=== PATIENT | female | born 1945 | race African-American/Black ===

== ENCOUNTER 2017-02-07 03:24 | Inpatient (IN) | payer MEDICARE, MEDICAID ==
[~2017-02-07] VITALS: Ht 167.6 cm; Wt 64.4 kg
[~2017-02-07 03:24] MED LIST: GABA-529 PO; LEVO25TA7 PO; LOSA25TA12 PO
[2017-02-07] MEDS ORDERED: MORPHINE SULFATE 4 MG/ML CPJ (NOT FOR IM USE) IV STA (03:49)
[2017-02-07] MEDS ORDERED: ONDANSETRON HCL 4MG/2ML VIAL IV STA (03:49)
[2017-02-07] MEDS ORDERED: SODIUM CHLORIDE 0.9% 1,000 ML IV ONE (03:49)
[2017-02-07 04:19] LABS: BASOPHILS % 0.9 % (0.0-2.0); EOSINOPHILS % 1.4 % (0.0-5.0); HEMATOCRIT. 35.7 % (36.0-48.0); HEMOGLOBIN. 12.2 g/dL (12.0-16.0); LYMPHOCYTES % 27.4 % (20.0-50.0); MEAN CORPUSCULAR HEMOGLOBIN 30.9 pg (28.0-32.0); MEAN CORPUSCULAR VOLUME 90.7 fL (81.0-99.0); MEAN PLATELET VOLUME 8.8 fl (7.4-10.4); MONOCYTES % 7.2 % (2.0-8.0); NEUTROPHILS % 63.1 % (40.0-76.0); PLATELET 219 x1000/uL (130-400); RED BLOOD CELL COUNT 3.93 mill/uL (4.2-5.4); RED CELL DISTRIBUTION WIDTH 14.6 % (11.6-14.6)
[2017-02-07 04:33] LABS: CARBON DIOXIDE 29 mEq/L (21-32); CHLORIDE 107 mEq/L (98-107); TROPONIN I < 0.02 ng/mL (0.00-0.04)
[2017-02-07 04:57] LABS: CLARITY URINE CLEAR (CLEAR); COLOR URINE YELLOW (YELLOW); GLUCOSE URINE NEGATIVE (NEGATIVE); KETONES URINE NEGATIVE (NEGATIVE); LEUKOCYTE ESTERASE URINE TRACE (NEGATIVE); NITRITE URINE NEGATIVE (NEGATIVE); OCCULT BLOOD URINE NEGATIVE (NEGATIVE); PH URINE 8.5 (4.5-8.0); PROTEIN URINE TRACE (NEGATIVE); SPECIFIC GRAVITY URINE 1.015 (1.005-1.030); UROBILINOGEN URINE 0.2 E.U./dL (0.2-1.0)
[2017-02-07 08:00] VITALS: BP 168/100
[2017-02-07 09:30] VITALS: BP 160/85
[2017-02-07] MEDS ORDERED: LEVO50TA8 PO (09:32)
[2017-02-07] MEDS ORDERED: HYDR12.529 PO (09:32)
[2017-02-07] MEDS ORDERED: CLOP75TA33 PO (09:32)
[2017-02-07] MEDS ORDERED: ASPI-1159 PO (09:32)
[2017-02-07] MEDS ORDERED: LOSA50TA20 PO (09:33)
[2017-02-07] MEDS ORDERED: HYDROMORPHONE HCL/PF 2MG/ML CPJ IV PRN (10:15)
[2017-02-07] MEDS: HYDROCHLOROTHIAZIDE 25MG TABLET PO SCH (10:58)
[2017-02-07] MEDS: ASPIRIN 81MG EC TABLET PO SCH (10:58)
[2017-02-07] MEDS: LOSARTAN POTASSIUM 50 MG TABLET PO SCH (10:58)
[2017-02-07] MEDS: CLOPIDOGREL 75MG TABLET PO SCH (10:58)
[2017-02-07] MEDS: PANTOPRAZOLE SODIUM 40 MG/VIAL IV SCH (10:58)
[2017-02-07] MEDS: DEXT 5%/0.45% NACL 1000ML 1,000 ML IV SCH (10:59)
[2017-02-07 12:00] VITALS: BP 131/70
[2017-02-07] MEDS ORDERED: SORBITOL 70% SOLN 30ML PO NR ×2 (12:45→14:45)
[2017-02-07] MEDS: SENNOSIDES/DOCUSATE SOD 8.6/50MG TABLET PO SCH ×2 (13:16→18:15)
[2017-02-07] MEDS ORDERED: DIATR MEGLU/DIATRIZOATE SOLN 120ML ONE (13:35)
[2017-02-07] MEDS ORDERED: LORAZEPAM 1MG TABLET PO PRN (14:45)
[2017-02-07] MEDS ORDERED: TEMAZEPAM 15MG CAPSULE PO PRN (14:45)
[2017-02-07 16:00] VITALS: BP 174/78
[2017-02-07 16:55] VITALS: BP 145/85
[2017-02-07 20:00] VITALS: BP_SYST 154; BP_SYST 156; BP_DIAS 83; BP_DIAS 84
[2017-02-07] MEDS ORDERED: SORBITOL 70% SOLN 30ML PO PRN (20:00)
[2017-02-08] VITALS: BP 191/95
[2017-02-08] MEDS: CLONIDINE 0.1MG TABLET PO PRN (00:24)
[2017-02-08 04:00] VITALS: BP 125/75
[2017-02-08] MEDS: LEVOTHYROXINE SODIUM 50MCG TABLET PO SCH (06:30)
[2017-02-08 06:44] LABS: BASOPHILS % 0.7 % (0.0-2.0); EOSINOPHILS % 0.8 % (0.0-5.0); HEMATOCRIT. 34.2 % (36.0-48.0); HEMOGLOBIN. 11.8 g/dL (12.0-16.0); LYMPHOCYTES % 32.9 % (20.0-50.0); MEAN CORPUSCULAR HEMOGLOBIN 31.6 pg (28.0-32.0); MEAN CORPUSCULAR VOLUME 91.9 fL (81.0-99.0); MEAN PLATELET VOLUME 9.1 fl (7.4-10.4); MONOCYTES % 7.6 % (2.0-8.0); PLATELET 191 x1000/uL (130-400); RED BLOOD CELL COUNT 3.72 mill/uL (4.2-5.4); RED CELL DISTRIBUTION WIDTH 14.2 % (11.6-14.6)
[2017-02-08 07:48] LABS: PHOSPHORUS 2.8 mg/dL (2.5-4.9)
[2017-02-08 08:00] VITALS: BP 121/65
[2017-02-08] MEDS ORDERED: ENOXAPARIN 30MG/0.3ML SYR SUBCUT SCH (09:00)
[2017-02-08] MEDS: CLOPIDOGREL 75MG TABLET PO SCH (09:13)
[2017-02-08] MEDS: PANTOPRAZOLE SODIUM 40 MG/VIAL IV SCH (09:13)
[2017-02-08] MEDS: ASPIRIN 81MG EC TABLET PO SCH (09:13)
[2017-02-08] MEDS: SENNOSIDES/DOCUSATE SOD 8.6/50MG TABLET PO SCH ×2 (09:13→17:24)
[2017-02-08] MEDS: HYDROCHLOROTHIAZIDE 25MG TABLET PO SCH (09:13)
[2017-02-08] MEDS: LOSARTAN POTASSIUM 50 MG TABLET PO SCH (09:14)
[2017-02-08] MEDS: DEXT 5%/0.45% NACL 1000ML 1,000 ML IV SCH (09:15)
[2017-02-08 12:00] VITALS: BP 125/80
[2017-02-08 16:00] VITALS: BP 151/79
[2017-02-08 20:00] VITALS: BP 146/78
[2017-02-09] VITALS: BP 164/94
[2017-02-09] MEDS: CLONIDINE 0.1MG TABLET PO PRN (01:04)
[2017-02-09 04:00] VITALS: BP 148/90
[2017-02-09] MEDS: LEVOTHYROXINE SODIUM 50MCG TABLET PO SCH (06:25)
[2017-02-09 08:01] VITALS: BP 136/83
[2017-02-09] MEDS: SENNOSIDES/DOCUSATE SOD 8.6/50MG TABLET PO SCH (08:49)
[2017-02-09] MEDS: HYDROCHLOROTHIAZIDE 25MG TABLET PO SCH (08:49)
[2017-02-09] MEDS: CLOPIDOGREL 75MG TABLET PO SCH (08:49)
[2017-02-09] MEDS: ASPIRIN 81MG EC TABLET PO SCH (08:49)
[2017-02-09] MEDS: LOSARTAN POTASSIUM 50 MG TABLET PO SCH (08:56)
[2017-02-09] MEDS ORDERED: ENOXAPARIN 40MG/0.4ML SYR SUBCUT SCH (09:00)
[2017-02-09] MEDS ORDERED: FAMOTIDINE 20MG/2ML VIAL IV SCH (09:00)
[2017-02-09 11:04] VITALS: BP 136/83
== END 2017-02-09 12:25 | disposition home or self-care (01) | DRG 389 ==
LOC: ER 03:24 → EDBEDREQ 04:08 → 6WST 06:00 → EDBEDREQ 06:06 → ENRESERV 07:05
PROVIDERS: ADMIT Internal Medicine Nephrology; ATTEND Internal Medicine Nephrology
DX: K56.69 Other intestinal obstruction (principal); N17.9 Acute kidney failure, unspecified; N18.3 Chronic kidney disease, stage 3 (moderate); I12.9 Hypertensive chronic kidney disease with stage 1 through stage 4 chronic kidney disease, or unspecified chronic kidney disease; E04.2 Nontoxic multinodular goiter; E03.9 Hypothyroidism, unspecified; E78.5 Hyperlipidemia, unspecified; K59.00 Constipation, unspecified; F41.1 Generalized anxiety disorder; I73.9 Peripheral vascular disease, unspecified; M19.90 Unspecified osteoarthritis, unspecified site; Z87.11 Personal history of peptic ulcer disease; Z87.891 Personal history of nicotine dependence; Z90.710 Acquired absence of both cervix and uterus; Z88.0 Allergy status to penicillin; Z79.899 Other long term (current) drug therapy
CPT/HCPCS: 36415; 71010; 74176; 80048; 80053; 81001; 83605; 83690; 83735; 84100; 84484; 85025; 87086; 93005; 96361; 96374; 96375; 99285; C9113; J1170; J1650; J2270; J2405; J3490; J7030; Q9963

== ENCOUNTER → 2018-08-14 | Outpatient (CLI) | payer MEDICARE, MEDICAID ==
[~2018-08-14] MED LIST changes: +ASPI-1159 PO; +CLOP75TA33 PO; -GABA-529 PO; +HYDR12.529 PO; -LEVO25TA7 PO; +LEVO50TA8 PO; -LOSA25TA12 PO; +LOSA50TA20 PO
== END | disposition home or self-care (01) ==
LOC: PVL 13:08
PROVIDERS: ATTEND Internal Medicine Nephrology
DX: I73.9 Peripheral vascular disease, unspecified (principal); R20.0 Anesthesia of skin
CPT/HCPCS: 93923

== ENCOUNTER 2018-12-07 20:53 | Inpatient (IN) | payer MEDICARE, MEDICAID ==
[~2018-12-07] VITALS: Ht 167.6 cm; Wt 68.1 kg
[~2018-12-07 20:53] MED LIST changes: -ASPI-1159 PO; +ASPI-1393 PO; -LOSA50TA20 PO; +LOSA50TA41 PO
[2018-12-07 23:47] LABS: EOSINOPHILS % 1.1 % (0.0-5.0); HEMATOCRIT. 35.9 % (36.0-48.0); HEMOGLOBIN. 12.2 g/dL (12.0-16.0); LYMPHOCYTES % 23.3 % (20.0-50.0); MEAN CORPUSCULAR VOLUME 93.8 fL (81.0-99.0); MEAN PLATELET VOLUME 8.3 fl (7.4-10.4); MONOCYTES % 8.1 % (2.0-8.0); NEUTROPHILS % 66.5 % (40.0-76.0); PLATELET 186 x1000/uL (130-400); RED BLOOD CELL COUNT 3.83 mill/uL (4.2-5.4); RED CELL DISTRIBUTION WIDTH 14.3 % (11.6-14.6)
[2018-12-07 23:52] LABS: CHLORIDE 106 mEq/L (98-107)
[2018-12-08] VITALS (9 sets, daily range): BP systolic 110–167; BP diastolic 29–91
[2018-12-08] MEDS ORDERED: ASPIRIN 325MG TABLET PO ONE (01:00)
[2018-12-08] MEDS ORDERED: ENOXAPARIN 60MG/0.6ML SYR SUBCUT ONE (01:00)
[2018-12-08 01:45] LABS: PARTIAL THROMBOPLASTIN TIME 26.7 sec (23.4-31.0)
[2018-12-08] MEDS ORDERED: CLONIDINE 0.1MG TABLET PO PRN (02:30)
[2018-12-08] MEDS ORDERED: GUAIFENESIN 200MG/10ML SUGAR FREE UDC PO PRN (02:30)
[2018-12-08] MEDS ORDERED: MAGNESIUM/ALUMINUM HYDROXIDE/SIMETHICONE 30ML UDC PO PRN (02:30)
[2018-12-08] MEDS ORDERED: MORPHINE SULFATE 2 MG/ML CPJ (NOT FOR IM USE) IV PRN (02:30)
[2018-12-08] MEDS ORDERED: HYDROCODONE/ACETAMINOPHEN 5/325MG TABLET PO PRN (02:30)
[2018-12-08] MEDS ORDERED: ACETAMINOPHEN 325MG TABLET PO PRN ×2 (02:30→12:15)
[2018-12-08] MEDS ORDERED: ONDANSETRON HCL 4MG/2ML INJ IV PRN (02:30)
[2018-12-08] MEDS ORDERED: ENOXAPARIN 40MG/0.4ML SYR SUBCUT SCH (08:00)
[2018-12-08] MEDS ORDERED: DOCUSATE SODIUM 100MG CAPSULE PO PRN (09:00)
[2018-12-08] MEDS ORDERED: AMLODIPINE 10MG TABLET PO SCH (09:00)
[2018-12-08] MEDS: ASPIRIN 81MG EC TABLET PO SCH (09:10)
[2018-12-08] MEDS ORDERED: NITROGLYCERIN 50MCG/ML 10ML VIAL (CATH LAB) IV ONE (10:00)
[2018-12-08] MEDS ORDERED: NICARDIPINE 100MCG/ML 10ML VIAL (CATH LAB) IV ONE (10:00)
[2018-12-08] MEDS ORDERED: HEPARIN SODIUM 1,000 UNIT/1ML VIAL IV ONE ×2 (10:00→10:35)
[2018-12-08 10:05] LABS: CREATINE KINASE MB FRACTION 1.9 ng/mL (0.5-3.6)
[2018-12-08] MEDS ORDERED: LOSARTAN POTASSIUM 25 MG TABLET PO SCH (10:15)
[2018-12-08] MEDS ORDERED: CLOPIDOGREL 75MG TABLET PO SCH ×2 (10:15→12:15)
[2018-12-08] MEDS ORDERED: IODIXANOL 320MG/ML 100 ML BOTTLE IV ONE (10:32)
[2018-12-08] MEDS ORDERED: LIDOCAINE HCL 1% 20ML VIAL (Pyxis) INJ ONE (10:32)
[2018-12-08] MEDS ORDERED: MIDAZOLAM HCL 2 MG/2 ML VIAL ONE (11:03)
[2018-12-08] MEDS ORDERED: FENTANYL CITRATE/PF 50MCG/ML 2ML VIAL ONE (11:04)
[2018-12-08] MEDS ORDERED: DIPHENHYDRAMINE 50MG/ML VIAL ONE (11:14)
[2018-12-08] MEDS ORDERED: IOHEXOL-300 100 ML BOTTLE ONE (11:42)
[2018-12-08] MEDS ORDERED: NITROGLYCERIN 0.4MG TABLET SL SL ONE (12:05)
[2018-12-08] MEDS ORDERED: CLOPIDOGREL 75MG TABLET ONE (12:06)
[2018-12-08] MEDS ORDERED: CLOPIDOGREL 75MG TABLET PO ONE (12:15)
[2018-12-08] MEDS ORDERED: ATROPINE SULFATE 1MG/10ML SYR IV PRN (12:15)
[2018-12-08] MEDS: LEVOTHYROXINE SODIUM 25MCG TABLET PO SCH (13:25)
[2018-12-08] MEDS: DEXT 5%/0.9% NACL 1,000 ML IV SCH ×2 (14:00→23:05)
[2018-12-08] MEDS: HYDROCHLOROTHIAZIDE 12.5MG CAPSULE PO SCH (14:00)
[2018-12-08 21:46] LABS: CREATINE KINASE MB FRACTION 2.2 ng/mL (0.5-3.6)
[2018-12-09] VITALS (7 sets, daily range): BP systolic 130–168; BP diastolic 73–93
[2018-12-09] MEDS: LEVOTHYROXINE SODIUM 25MCG TABLET PO SCH (06:32)
[2018-12-09] MEDS: HYDROCHLOROTHIAZIDE 12.5MG CAPSULE PO SCH (06:32)
[2018-12-09 06:36] LABS: BASOPHILS % 0.8 % (0.0-2.0); EOSINOPHILS % 2.7 % (0.0-5.0); HEMATOCRIT. 36.8 % (36.0-48.0); HEMOGLOBIN. 12.6 g/dL (12.0-16.0); LYMPHOCYTES % 35.7 % (20.0-50.0); MEAN CORPUSCULAR VOLUME 93.2 fL (81.0-99.0); MONOCYTES % 12.5 % (2.0-8.0); NEUTROPHILS % 48.3 % (40.0-76.0); PLATELET 195 x1000/uL (130-400); RED BLOOD CELL COUNT 3.95 mill/uL (4.2-5.4); RED CELL DISTRIBUTION WIDTH 14.3 % (11.6-14.6)
[2018-12-09 07:51] LABS: CHLORIDE 110 mEq/L (98-107)
[2018-12-09 08:01] LABS: LDL CHOLESTEROL 117 mg/dL (5-100)
[2018-12-09 08:03] LABS: HDL CHOLESTEROL 51 mg/dL (40-59); T4 FREE 1.29 ng/dL (0.76-1.46)
[2018-12-09] MEDS: ASPIRIN 81MG EC TABLET PO SCH (08:36)
[2018-12-09] MEDS ORDERED: LOSARTAN POTASSIUM 50 MG TABLET PO SCH (09:00)
[2018-12-09] MEDS ORDERED: CLOPIDOGREL 75MG TABLET PO SCH (09:00)
[2018-12-09] MEDS ORDERED: ASPIRIN 81MG TABLET PO SCH (09:00)
[2018-12-09] MEDS ORDERED: ATORVASTATIN CALCIUM 40MG TABLET PO SCH (21:00)
== END 2018-12-09 11:50 | disposition home or self-care (01) | DRG 247 ==
LOC: ER 20:53 → 5WST 12-08 01:43 → SUPCPDRO 12-08 02:23 → ENRESERV 12-08 03:06 → 3WST 12-08 12:37
PROVIDERS: ADMIT Hospitalist; ATTEND Hospitalist
PROC: 4A023N7 Measurement of Cardiac Sampling and Pressure, Left Heart, Percutaneous Approach (ICD-10-PCS; principal; 2018-12-08)
PROC: 027035Z Dilation of Coronary Artery, One Artery with Two Drug-eluting Intraluminal Devices, Percutaneous Approach (ICD-10-PCS; 2018-12-08)
PROC: B2111ZZ Fluoroscopy of Multiple Coronary Arteries using Low Osmolar Contrast (ICD-10-PCS; 2018-12-08)
PROC: B2151ZZ Fluoroscopy of Left Heart using Low Osmolar Contrast (ICD-10-PCS; 2018-12-08)
DX: I21.4 Non-ST elevation (NSTEMI) myocardial infarction (principal); I25.10 Atherosclerotic heart disease of native coronary artery without angina pectoris; I12.9 Hypertensive chronic kidney disease with stage 1 through stage 4 chronic kidney disease, or unspecified chronic kidney disease; E78.5 Hyperlipidemia, unspecified; I73.9 Peripheral vascular disease, unspecified; E03.9 Hypothyroidism, unspecified; M19.90 Unspecified osteoarthritis, unspecified site; N18.3 Chronic kidney disease, stage 3 (moderate); F41.9 Anxiety disorder, unspecified; M47.817 Spondylosis without myelopathy or radiculopathy, lumbosacral region; E04.2 Nontoxic multinodular goiter; R00.1 Bradycardia, unspecified; T50.905A Adverse effect of unspecified drugs, medicaments and biological substances, initial encounter; Y92.89 Other specified places as the place of occurrence of the external cause; Z88.0 Allergy status to penicillin; Z88.1 Allergy status to other antibiotic agents; Z79.82 Long term (current) use of aspirin; Z79.02 Long term (current) use of antithrombotics/antiplatelets; Z79.899 Other long term (current) drug therapy; Z87.891 Personal history of nicotine dependence; Z90.5 Acquired absence of kidney; Z90.710 Acquired absence of both cervix and uterus; Z88.8 Allergy status to other drugs, medicaments and biological substances
CPT/HCPCS: 36415; 71045; 80048; 80061; 82550; 82553; 83036; 83880; 84439; 84443; 84484; 85347; 85379; 92928; 93005; 93306; 93458; 93970; 96372; 99285; C1725; C1769; C1874 ×2; C1887; C1893; J1200; J1644; J1650; J2250; J3010; J3490; J7042; Q9967

== ENCOUNTER 2019-02-13 09:58 | Inpatient (IN) | payer MEDICARE, MEDICAID ==
[~2019-02-13] VITALS: Ht 167.6 cm; Wt 65.8 kg
[2019-02-13 11:23] LABS: BASOPHILS % 0.9 % (0.0-2.0); EOSINOPHILS % 3.5 % (0.0-5.0); HEMATOCRIT. 36.9 % (36.0-48.0); HEMOGLOBIN. 12.6 g/dL (12.0-16.0); MEAN CORPUSCULAR HEMOGLOBIN 32.3 pg (28.0-32.0); MONOCYTES % 9.4 % (2.0-8.0); NEUTROPHILS % 58.2 % (40.0-76.0); PLATELET 184 x1000/uL (130-400); RED BLOOD CELL COUNT 3.89 mill/uL (4.2-5.4); RED CELL DISTRIBUTION WIDTH 14.5 % (11.6-14.6)
[2019-02-13 11:28] LABS: CHLORIDE 109 mEq/L (98-107)
[2019-02-13] MEDS ORDERED: NITROGLYCERIN 0.4MG TABLET SL SL ONE (11:30)
[2019-02-13] MEDS ORDERED: ASPIRIN 81MG TABLET PO ONE (11:30)
[2019-02-13 15:05] VITALS: BP 140/88
[2019-02-13] MEDS ORDERED: CARV3.1242 PO (16:07)
[2019-02-13] MEDS ORDERED: ATOR10TA69 MT (16:07)
[2019-02-13] MEDS ORDERED: DOCU-150 MT (16:07)
[2019-02-13] MEDS ORDERED: ONDANSETRON HCL 4MG/2ML INJ IV PRN (16:15)
[2019-02-13] MEDS ORDERED: CARVEDILOL 3.125 MG TABLET PO NR (16:15)
[2019-02-13] MEDS ORDERED: ACETAMINOPHEN 325MG TABLET PO PRN (16:15)
[2019-02-13] MEDS ORDERED: CLONIDINE 0.1MG TABLET PO PRN (16:15)
[2019-02-13] MEDS ORDERED: HYDROCODONE/ACETAMINOPHEN 5/325MG TABLET PO PRN (16:15)
[2019-02-13] MEDS: LEVOTHYROXINE SODIUM 50MCG TABLET PO SCH (16:30)
[2019-02-13] MEDS: LOSARTAN POTASSIUM 50 MG TABLET PO SCH (16:30)
[2019-02-13] MEDS ORDERED: MORPHINE SULFATE 2 MG/ML CPJ (NOT FOR IM USE) IV PRN (16:30)
[2019-02-13] MEDS: CARVEDILOL 3.125 MG TABLET PO SCH (18:35)
[2019-02-13] MEDS: ENOXAPARIN 40MG/0.4ML SYR SUBCUT SCH (18:35)
[2019-02-13] MEDS: DOCUSATE SODIUM 100MG CAPSULE PO SCH (18:36)
[2019-02-13 20:00] VITALS: BP 107/59
[2019-02-13] MEDS: ATORVASTATIN CALCIUM 10MG TABLET PO SCH (20:14)
[2019-02-13] MEDS: LORAZEPAM 1MG TABLET PO SCH (20:21)
[2019-02-14] VITALS: BP 108/63
[2019-02-14 02:39] LABS: CREATINE KINASE 40 IU/L (26-192)
[2019-02-14 02:40] LABS: CREATINE KINASE MB FRACTION < 1.0 ng/mL (0.5-3.6)
[2019-02-14 04:00] VITALS: BP 137/59
[2019-02-14] MEDS: LEVOTHYROXINE SODIUM 50MCG TABLET PO SCH (06:27)
[2019-02-14 06:55] LABS: CHLORIDE 109 mEq/L (98-107)
[2019-02-14 06:56] LABS: BASOPHILS % 0.4 % (0.0-2.0); EOSINOPHILS % 4.7 % (0.0-5.0); HEMATOCRIT. 34.6 % (36.0-48.0); HEMOGLOBIN. 11.7 g/dL (12.0-16.0); LYMPHOCYTES % 47.9 % (20.0-50.0); MEAN CORPUSCULAR VOLUME 94.8 fL (81.0-99.0); MEAN PLATELET VOLUME 8.9 fl (7.4-10.4); MONOCYTES % 8.7 % (2.0-8.0); NEUTROPHILS % 38.3 % (40.0-76.0); PLATELET 185 x1000/uL (130-400); RED BLOOD CELL COUNT 3.65 mill/uL (4.2-5.4); RED CELL DISTRIBUTION WIDTH 14.3 % (11.6-14.6)
[2019-02-14 07:07] LABS: LDL CHOLESTEROL 71 mg/dL (5-100)
[2019-02-14 07:08] LABS: CREATINE KINASE 36 IU/L (26-192)
[2019-02-14 07:10] LABS: CREATINE KINASE MB FRACTION < 1.0 ng/mL (0.5-3.6); HDL CHOLESTEROL 53 mg/dL (40-59)
[2019-02-14 08:00] VITALS: BP 126/68
[2019-02-14] MEDS: HYDROCHLOROTHIAZIDE 12.5MG CAPSULE PO SCH (08:53)
[2019-02-14] MEDS: ASPIRIN 81MG EC TABLET PO SCH ×2 (08:53→08:54)
[2019-02-14] MEDS: DOCUSATE SODIUM 100MG CAPSULE PO SCH ×2 (08:54→17:51)
[2019-02-14] MEDS: LOSARTAN POTASSIUM 50 MG TABLET PO SCH (08:54)
[2019-02-14] MEDS: CARVEDILOL 3.125 MG TABLET PO SCH (08:54)
[2019-02-14] MEDS: AMLODIPINE 10MG TABLET PO SCH (08:54)
[2019-02-14] MEDS: CLOPIDOGREL 75MG TABLET PO SCH (08:54)
[2019-02-14 12:00] VITALS: BP 119/75
[2019-02-14 16:00] VITALS: BP 110/62
[2019-02-14] MEDS: ENOXAPARIN 40MG/0.4ML SYR SUBCUT SCH (17:00)
[2019-02-14 20:00] VITALS: BP 112/56
[2019-02-14] MEDS: ATORVASTATIN CALCIUM 10MG TABLET PO SCH (21:12)
[2019-02-14] MEDS: LORAZEPAM 1MG TABLET PO SCH (23:48)
[2019-02-15] VITALS: BP 135/72
[2019-02-15 04:00] VITALS: BP 107/62
[2019-02-15] MEDS: LEVOTHYROXINE SODIUM 50MCG TABLET PO SCH (06:49)
[2019-02-15 08:00] VITALS: BP 109/66
[2019-02-15] MEDS: ASPIRIN 81MG EC TABLET PO SCH ×2 (09:00→09:20)
[2019-02-15] MEDS: AMLODIPINE 10MG TABLET PO SCH (09:00)
[2019-02-15] MEDS: CARVEDILOL 3.125 MG TABLET PO SCH (09:00)
[2019-02-15] MEDS: LOSARTAN POTASSIUM 50 MG TABLET PO SCH (09:00)
[2019-02-15] MEDS: CLOPIDOGREL 75MG TABLET PO SCH (09:21)
[2019-02-15] MEDS: DOCUSATE SODIUM 100MG CAPSULE PO SCH ×2 (09:21→17:15)
[2019-02-15] MEDS: HYDROCHLOROTHIAZIDE 12.5MG CAPSULE PO SCH (09:28)
[2019-02-15] MEDS ORDERED: REGADENOSON 0.4 MG/5 ML IV ONE ×2 (09:30→12:03)
[2019-02-15 13:05] VITALS: BP 136/70
[2019-02-15 16:00] VITALS: BP 128/60
[2019-02-15] MEDS: ENOXAPARIN 40MG/0.4ML SYR SUBCUT SCH (17:15)
[2019-02-15 20:00] VITALS: BP 109/61
[2019-02-15] MEDS: ATORVASTATIN CALCIUM 10MG TABLET PO SCH (21:32)
[2019-02-15] MEDS: LORAZEPAM 1MG TABLET PO SCH (21:32)
[2019-02-16] VITALS: BP 108/57
[2019-02-16 04:00] VITALS: BP 111/64
[2019-02-16] MEDS: LEVOTHYROXINE SODIUM 50MCG TABLET PO SCH (06:51)
[2019-02-16 08:00] VITALS: BP 134/91
[2019-02-16 09:19] VITALS: BP 134/91
== END 2019-02-16 09:45 | disposition home or self-care (01) | DRG 303 ==
LOC: ER 10:07 → 8WST 13:32 → EDBEDREQTM 13:42 → ENRESERV 13:46
PROVIDERS: ADMIT Hospitalist; ATTEND Hospitalist
DX: I25.118 Atherosclerotic heart disease of native coronary artery with other forms of angina pectoris (principal); N17.9 Acute kidney failure, unspecified; E03.9 Hypothyroidism, unspecified; E78.00 Pure hypercholesterolemia, unspecified; E78.5 Hyperlipidemia, unspecified; I12.9 Hypertensive chronic kidney disease with stage 1 through stage 4 chronic kidney disease, or unspecified chronic kidney disease; N18.3 Chronic kidney disease, stage 3 (moderate); E04.2 Nontoxic multinodular goiter; M19.90 Unspecified osteoarthritis, unspecified site; K21.9 Gastro-esophageal reflux disease without esophagitis; F41.9 Anxiety disorder, unspecified; I10 Essential (primary) hypertension; I25.2 Old myocardial infarction; Z95.5 Presence of coronary angioplasty implant and graft; Z87.891 Personal history of nicotine dependence; Z90.710 Acquired absence of both cervix and uterus; Z90.5 Acquired absence of kidney; Z79.02 Long term (current) use of antithrombotics/antiplatelets; Z79.82 Long term (current) use of aspirin; Z79.899 Other long term (current) drug therapy; Z88.0 Allergy status to penicillin; Z82.3 Family history of stroke
CPT/HCPCS: 36415; 71045; 78452; 80048; 80061; 82550; 82553; 83880; 84484; 93005; 93017; 93306; 93970; 96372; 99285; A9500; J1650; J2785

== ENCOUNTER 2019-10-06 11:14 | Inpatient (IN) | payer MEDICARE, MEDICAID ==
[~2019-10-06] VITALS: Ht 167.6 cm; Wt 81.7 kg
[~2019-10-06 11:14] MED LIST changes: -ASPI-1393 PO; +ASPI-1497 PO; +ATOR10TA69 MT; +CARV3.1242 PO; +DOCU-150 MT
[2019-10-06 11:55] LABS: BASOPHILS % 0.9 % (0.0-2.0); EOSINOPHILS % 2.7 % (0.0-5.0); HEMATOCRIT. 36.5 % (36.0-48.0); HEMOGLOBIN. 12.5 g/dL (12.0-16.0); LYMPHOCYTES % 22.2 % (20.0-50.0); MEAN CORPUSCULAR HEMOGLOBIN 32.2 pg (28.0-32.0); MEAN CORPUSCULAR VOLUME 94.3 fL (81.0-99.0); MEAN PLATELET VOLUME 8.7 fl (7.4-10.4); MONOCYTES % 9.9 % (2.0-8.0); NEUTROPHILS % 64.3 % (40.0-76.0); PLATELET 205 x1000/uL (130-400); RED BLOOD CELL COUNT 3.87 mill/uL (4.2-5.4)
[2019-10-06 12:03] LABS: INR 0.9; PROTHROMBIN TIME 9.9 sec (9.6-11.0)
[2019-10-06 12:05] LABS: CHLORIDE 108 mEq/L (98-107)
[2019-10-06] MEDS ORDERED: ASPIRIN 325MG TABLET PO ONE (13:00)
[2019-10-06] MEDS ORDERED: SODIUM CHLORIDE 0.9% 1,000 ML IV ONE (13:00)
[2019-10-06] MEDS: SODIUM CHLORIDE 0.9% 1,000 ML IV SCH (16:42)
[2019-10-06] MEDS ORDERED: ONDANSETRON HCL 4MG/2ML INJ IV PRN (16:45)
[2019-10-06] MEDS ORDERED: NA PHOS,M-B/NA PHOS,DI-BA ENEMA 118ML PR PRN (16:45)
[2019-10-06] MEDS: MULTIVITAMINS,THER W-MINERALS TABLET PO SCH (16:45)
[2019-10-06] MEDS ORDERED: HYDROCODONE/ACETAMINOPHEN 5/325MG TABLET PO PRN (16:45)
[2019-10-06] MEDS ORDERED: DOCUSATE SODIUM 100MG CAPSULE PO PRN (16:45)
[2019-10-06] MEDS ORDERED: ACETAMINOPHEN 325MG TABLET PO PRN (16:45)
[2019-10-06] MEDS ORDERED: CLONIDINE 0.1MG TABLET PO PRN (16:45)
[2019-10-06] MEDS ORDERED: GUAIFENESIN 200MG/10ML SUGAR FREE UDC PO PRN (16:45)
[2019-10-06] MEDS: ENOXAPARIN 40MG/0.4ML SYR SUBCUT SCH (16:45)
[2019-10-06] MEDS ORDERED: MAGNESIUM/ALUMINUM HYDROXIDE/SIMETHICONE 30ML UDC PO PRN (16:45)
[2019-10-06 20:00] VITALS: BP 130/72
[2019-10-06 22:49] VITALS: BP 130/72
[2019-10-07] VITALS: BP 126/72
[2019-10-07] MEDS: SODIUM CHLORIDE 0.9% 1,000 ML IV SCH ×2 (02:37→17:21)
[2019-10-07 04:00] VITALS: BP 119/72
[2019-10-07 06:36] LABS: BASOPHILS % 0.6 % (0.0-2.0); EOSINOPHILS % 3.4 % (0.0-5.0); HEMATOCRIT. 33.1 % (36.0-48.0); HEMOGLOBIN. 11.5 g/dL (12.0-16.0); LYMPHOCYTES % 39.7 % (20.0-50.0); MEAN CORPUSCULAR HEMOGLOBIN 32.1 pg (28.0-32.0); MEAN CORPUSCULAR VOLUME 92.3 fL (81.0-99.0); MEAN PLATELET VOLUME 8.8 fl (7.4-10.4); MONOCYTES % 9.8 % (2.0-8.0); NEUTROPHILS % 46.5 % (40.0-76.0); PLATELET 183 x1000/uL (130-400); RED BLOOD CELL COUNT 3.59 mill/uL (4.2-5.4); RED CELL DISTRIBUTION WIDTH 13.6 % (11.6-14.6)
[2019-10-07 07:32] LABS: CHLORIDE 113 mEq/L (98-107)
[2019-10-07] MEDS: MULTIVITAMINS,THER W-MINERALS TABLET PO SCH (10:18)
[2019-10-07] MEDS: ATORVASTATIN CALCIUM 10MG TABLET PO SCH (11:06)
[2019-10-07] MEDS: CLOPIDOGREL 75MG TABLET PO SCH (11:07)
[2019-10-07] MEDS: LEVOTHYROXINE SODIUM 50MCG TABLET PO SCH (11:07)
[2019-10-07 12:00] VITALS: BP_SYST 140; BP_SYST 147; BP_DIAS 72; BP_DIAS 80
[2019-10-07] MEDS: ENOXAPARIN 40MG/0.4ML SYR SUBCUT SCH (16:45)
[2019-10-07] MEDS: DOCUSATE SODIUM 100MG CAPSULE PO SCH (17:20)
[2019-10-07 20:00] VITALS: BP 120/62
[2019-10-08] VITALS: BP 146/105
[2019-10-08 04:00] VITALS: BP 132/88
[2019-10-08 07:30] LABS: BASOPHILS % 0.9 % (0.0-2.0); EOSINOPHILS % 2.8 % (0.0-5.0); HEMATOCRIT. 33.6 % (36.0-48.0); HEMOGLOBIN. 11.7 g/dL (12.0-16.0); LYMPHOCYTES % 41.6 % (20.0-50.0); MEAN CORPUSCULAR HEMOGLOBIN 32.2 pg (28.0-32.0); MEAN CORPUSCULAR VOLUME 92.2 fL (81.0-99.0); MEAN PLATELET VOLUME 8.8 fl (7.4-10.4); MONOCYTES % 11.2 % (2.0-8.0); NEUTROPHILS % 43.5 % (40.0-76.0); PLATELET 188 x1000/uL (130-400); RED BLOOD CELL COUNT 3.64 mill/uL (4.2-5.4); RED CELL DISTRIBUTION WIDTH 13.7 % (11.6-14.6)
[2019-10-08 07:57] LABS: CHLORIDE 114 mEq/L (98-107)
[2019-10-08 08:00] VITALS: BP 128/63
[2019-10-08] MEDS: CLOPIDOGREL 75MG TABLET PO SCH (08:12)
[2019-10-08] MEDS: DOCUSATE SODIUM 100MG CAPSULE PO SCH (08:12)
[2019-10-08] MEDS: MULTIVITAMINS,THER W-MINERALS TABLET PO SCH (08:12)
[2019-10-08 08:14] LABS: PHOSPHORUS 3.1 mg/dL (2.5-4.9)
[2019-10-08] MEDS: ATORVASTATIN CALCIUM 10MG TABLET PO SCH (08:14)
[2019-10-08] MEDS: LEVOTHYROXINE SODIUM 50MCG TABLET PO SCH (08:14)
[2019-10-08] MEDS: SODIUM CHLORIDE 0.9% 1,000 ML IV SCH (08:15)
[2019-10-08 11:12] VITALS: BP 128/63
== END 2019-10-08 12:00 | disposition home or self-care (01) | DRG 683 ==
LOC: ER 11:14 → EDBEDREQ 13:55 → 6WST 14:18 → EDBEDREQTM 14:22 → EDBEDREQ 14:22 → ENRESERV 20:51 → 6WST 22:45
PROVIDERS: ADMIT Hospitalist; ATTEND Hospitalist
DX: N17.9 Acute kidney failure, unspecified (principal); E44.1 Mild protein-calorie malnutrition; E78.00 Pure hypercholesterolemia, unspecified; E03.9 Hypothyroidism, unspecified; I95.1 Orthostatic hypotension; E78.5 Hyperlipidemia, unspecified; R00.1 Bradycardia, unspecified; I25.10 Atherosclerotic heart disease of native coronary artery without angina pectoris; I73.9 Peripheral vascular disease, unspecified; F41.9 Anxiety disorder, unspecified; E04.2 Nontoxic multinodular goiter; Z88.0 Allergy status to penicillin; Z88.8 Allergy status to other drugs, medicaments and biological substances; Z79.82 Long term (current) use of aspirin; Z79.899 Other long term (current) drug therapy; Z79.890 Hormone replacement therapy; Z90.710 Acquired absence of both cervix and uterus; Z68.21 Body mass index [BMI] 21.0-21.9, adult; Z95.5 Presence of coronary angioplasty implant and graft; I25.2 Old myocardial infarction; Z87.891 Personal history of nicotine dependence; Z83.3 Family history of diabetes mellitus; Z82.49 Family history of ischemic heart disease and other diseases of the circulatory system
CPT/HCPCS: 36415; 71045; 80048; 80053; 83735; 84100; 84443; 84484; 85025; 93005; 93970; 97162; 99285; J1650; J7030